=== PATIENT | male | born 1965 ===

== ENCOUNTER → 2019-02-02 06:30 | Day surgery (SDC) | payer BC ==
[~2019-02-02 06:30] MED LIST: Acetaminophen IV 1GM/100ML * 1,000 MG/100 ML VIAL IVPB ONE; Acetaminophen IV 1GM/100ML * 100 ML ONE; Acetaminophen TAB* 325 MG ONE; Acetaminophen TAB* 325 MG PO ONE; Buffered Lidocaine 1% SYRIN* 1 ML/SYRINGE INTRADERM ONE; Bupivacaine 0.5% W/EPI SDV* 30 ML VIAL ONE; Dexamethasone IV* 4 MG/ML 1 ML (4 MG) IV SLOW PU ONE; Dexamethasone IV* 4 MG/ML 1 ML (4 MG) ONE; DiMENhydriNATE IV* 50 MG/ML VIAL IV PUSH PRN; EPINEPHRINE 1 MG/ML 1 ML VIAL ONE; Famotidine IV* 10 MG/ML 2 ML (20 mg) ONE; Famotidine TAB* 20 MG PO ONE; Gabapentin CAP(*) 300 MG ONE; Gabapentin CAP(*) 300 MG PO ONE; HYDROmorphone INJ1* 1 MG/ML SYRINGE IV PRN; Ketorolac INJ* 30 MG/ML 1 ML VIAL IV PRN; Ketorolac INJ* 30 MG/ML 1 ML VIAL ONE; Lactated Ringers 1000 ML Bag* 1,000 ML IV SCH; Lidocaine 1%* 5 ML VIAL ONE; Midazolam* 1 MG/ML 5 ML VIAL (5 MG) ONE; Naloxone* 0.4 MG/ML 1 ML VIAL IV PRN; Ondansetron INJ* 2 MG/ML VIAL ONE; Propofol* 10 MG/ML 20 ML BTL ONE; ROPIVACAINE 5 MG/ML 30 ML BTL (0.5%) ONE; ceFAZolin 2 GM PREMIX in ORs 2 GM/50 ML BAG ONE; celeCOXIB CAP* 200 MG ONE; celeCOXIB CAP* 200 MG PO ONE; fentaNYL* 50 MCG/ML 2 ML VIAL (100 MCG VIAL) IV PRN; fentaNYL* 50 MCG/ML 2 ML VIAL (100 MCG VIAL) ONE; oxyCODONE TAB* 5 MG TAB PO PRN; oxyCODONE/Acetamin 5/325 MG* TAB ONE
[2019-02-02 15:12] VITALS: BP 123/77
--- NOTE | 2019-02-03 18:44 | OP ---
OPERATIVE REPORT: DATE OF OPERATION: 02/02/19 DATE OF : 67 SURGEON: Elie Abebe MD. BARN BOSS: KARIN Bah. ANESTHESIOLOGIST: Elie Padilla MD. ANESTHESIA: General anesthesia, regional interscalene block anesthesia, local anesthesia, 10 cc of M arcaine 0.5% with epinephrine. PRE-OP DIAGNOSES: 1. Right shoulder rotator cuff tendon tear, supraspinatus. 2. Possible right shoulder rotator tendon tear, subscapularis. 3. Right shoulder subacromial impingement and bursitis. 4. Right shoulder acromioclavicular joint osteoarthritis. 5. Right shoulder possible biceps tendinosis. POST-OP DIAGNOSES: 1. Right shoulder rotator cuff tendon tear, supraspinatus, full-thickness, full width. 2. Right shoulder rotator cuff tendon tear, subscapularis, full-thickness, superior aspect. 3. Right shoulder subacromial impingement and bursitis. 4. Right shoulder acromioclavicular joint arthritis. 5. Right shoulder long head biceps tendinosis and superior labral tear. OPERATIVE PROCEDURES: 1. Right shoulder arthroscopic rotator cuff tendon repair, supraspinatus, double row. 2. Right shoulder arthroscopic rotator cuff tendon repair, subscapularis, single row. 3. Right shoulder arthroscopic subacromial decompression. 4. Right shoulder arthroscopic distal clavicle resection. 5. Right shoulder arthroscopic biceps release and open proximal biceps tendon tenodesis. ANTIBIOTICS: Ancef 2 g IV. IV FLUIDS: See Anesthesia note. HZQC-UL-[id number] TIME: 123 minutes. SPECIMENS: None. IMPLANTS: Arthrex 5.5 mm suture anchors, double loaded with FiberTape x2. Arthrex 4.75 mm SwiveLock anchors x2. Arthrex proximal biceps unicortical tenodesis button x1. COMPLICATIONS: None. ESTIMATED BLOOD LOSS: Minimal. INDICATIONS FOR PROCEDURE: The patient is a 53-year-old man, right-hand dominant, who sustained a di screte injury on 10/01/18 about 4 months preoperatively, when he fell while skiing. The patient deve loped significant pain in the right shoulder. He responded insufficiently to nonoperative management. I had appreciated on the patient's preoperative MRI imaging that he likely had a subscapularis rotato r cuff tendon tear, that had not been appreciated. He did have a clear supraspinatus rotator cuff te ndon tear. Discussed risks and potential complications of procedure. Discussed long postoperative recovery. DESCRIPTION OF PROCEDURE: In preoperative holding, the patient signed a written consent. Operative extremity was marked in preoperative holding. In preoperative holding, the patient also had a region al anesthetic interscalene nerve block performed by Anesthesia. The patient was taken back to the op erating room and placed supine on the operating room table. On the operating room table, the patient was sedated and intubated by Anesthesia. The patient was the n converted to the lateral decubitus position with the right shoulder up. Axillary roll. Beanbag hernandez rdened. All bony prominences padded. Right shoulder in 15 pounds of longitudinal traction with the a ppropriate amount of forward flexion and abduction. Right shoulder was prepped and draped. Surgical time-out performed. I infused 30 cc of normal saline into the glenohumeral joint from posterior, then created a posterior glenohumeral joint portal using standard technique. Commenced diagnostic arthroscopy. No articular cartilage injury. I noticed immediately significant redness and fraying of the long hea d biceps tendon along its length along with a superior labral tear. The patient had demonstrated a p reference preoperatively for open tenodesis over a simple biceps tendon release. Clear supraspinatus rotator cuff tendon tear. I next inspected the subscapularis. There was clearly a tear in this location as well as the superior aspect, full- thickness, of the subscapularis tendon. I established an anterior glenohumeral joint portal under direct visualization. I entered a scissors and released the long head biceps tendon off of its origin. I debrided likely the superior labrum w ith an arthroscopic shaver. The comma tissue tissue between the subscapularis and supraspinatus was fully intact. At first, I considered performing a subscapularis repair arthroscopically from the glenohumeral joint , as I typically do. However, the stoutness of the patient's comma tissue made it clear that this wo uld be difficult, this was after I placed several portals. My options were to debride the comma tiss ue entirely and perform a very basic straightforward repair from the glenohumeral joint, versus attem pting it from the subacromial space, leaving the comma tissue intact. Given the robustness of his ti ssue, I thought it would be better to maintain a connection between those 2 tendons and do it from th e subacromial space. I moved to the subacromial space from posterior to anterior. I created several ancillary portals - a nterolateral, lateral, and posterolateral under direct visualization. I identified the empty footprint of the subscapularis tendon. I debrided it with an arthroscopic sha peter and an arthroscopic vishal, preparing it nicely. I placed a 4.75 mm SwiveLock anchor, double loaded, in that prepared footprint. I used an [employer] Sc orpion suture passer, antegrade, to pass 2 horizontal mattress stitches in the subscapularis tendon. These were then tied with the shoulder in a little bit of internal rotation. This brought tendon ex cellently to bone and I was very happy with it. The supraspinatus tendon, which had not retracted much at all, was appreciated to be in even better p osition, after I performed the subscapularis rotator cuff tendon repair. I next moved more superiorly to the supraspinatus. I introduced an arthroscopic shaver to debride ou t nicely the bursa throughout the subacromial space. I had excellent visualization of the supraspina tus tendon tear. I performed a subacromial decompression from lateral using arthroscopic vishal to smooth out the unders urface of the anterior curve of the acromion. I prepared the footprint of the supraspinatus with a VAPR and then an arthroscopic vishal. Next, using superolateral poke holes, I placed two 5.5 mm double loaded suture anchors, each loaded with FiberTa pe. One was anterior and the other posterior, each were at the medial most margin of the rotator cuf f tendon footprint. I used an [employer] Scorpion to pass horizontal mattress stitches. I passed all my sutures and then ti ed them. This brought down tendon to bone excellently. I next used 4 suture strands from the medial row and placed them through into a SwiveLock placed more laterally as a lateral row anchor. The tendon was brought excellently to bone. Repair was very stable to probing and movement of the up per arm. As I told the patient's , I was really impressed with the robustness of the patient's tendon tiss ue, both the subscapularis and especially the supraspinatus. Next moved to the AC joint. I debrided bursitic tissue with a VAPR. Debrided 8 mm of the distal end of the clavicle with an arthroscopic vishal. I removed all instruments and fluid from the subacromial space. Closed skin incisions with figure-of -eight and 12 stitches using nylon 3-0 suture. I released some hardness from the beanbag and turned the patient into a decubitus supine hybrid posit ion. We re-hardened the bag. I was very careful with the arm so that we did not externally rotate t he arm past neutral and we also did not abduct it beyond perhaps 60 degrees. This was to protect bot h repairs. I made a skin incision overlying the bicipital groove. I dissected down to the bicipital groove. Re moved long head of the biceps tendon. Placed retractors. I debrided bicipital groove with Bovie roopa ctrocautery and periosteal elevator. Placed a Beath pin. Placed 3 stitches using 5-0 chromic suture into the long head of the biceps tendon at the appropriate points for the appropriate tension in the fixed biceps tendon. I loaded a button and then passed and flipped the button. Tied a knot. Used a free needle to place another stitch. Tied a knot. Removed excess suture and tendon. Irrigation. C losure of the subcutaneous tissue with buried simple stitches using Vicryl 3-0 suture. Closure of th e skin with a running stitch in a subcuticular layer using Monocryl 4-0 suture. Local anesthesia was injected in the subcutaneous tissue about the open skin incision. Mastisol, Steri- Strips, 4x4, Teg aderm. The arthroscopic skin incisions received Xeroform, 4x4s, ABDs, foam tape. Sling with abduction edinson w was applied. The patient was awakened, extubated, and transferred to the PACU. DISPOSITION: The patient was given Percocet to take as needed for pain control and a short course of Keflex antibiotics postoperatively. Wound care instructions as detailed in the preoperative instruc tions. Follow up with me 10 to 14 days postoperatively. The patient will not start physical therapy for 6 weeks postoperatively. [id number]/[facility] #: [id number]
== END | disposition home or self-care (01) ==
LOC: OR 06:30
PROVIDERS: ATTEND Orthopaedic Surgery
DX: S46.011A Strain of muscle(s) and tendon(s) of the rotator cuff of right shoulder, initial encounter (principal); S43.491A Other sprain of right shoulder joint, initial encounter; M75.41 Impingement syndrome of right shoulder; M75.51 Bursitis of right shoulder; M19.011 Primary osteoarthritis, right shoulder; M75.21 Bicipital tendinitis, right shoulder; V00.321A Fall from snow-skis, initial encounter; Y93.23 Activity, snow (alpine) (downhill) skiing, snowboarding, sledding, tobogganing and snow tubing; Y92.89 Other specified places as the place of occurrence of the external cause; G89.18 Other acute postprocedural pain
CPT/HCPCS: A9270-GY; C1713; C1776; J0690; J1100; J1885; J2250; J2405; J2704; J2795; J3010